=== PATIENT | male | born 1945 | race Caucasian/White ===

== ENCOUNTER 2020-11-16 18:38 | Inpatient (IN) | payer OTHER ==
[~2020-11-16] VITALS: Ht 172.7 cm; Wt 86.2 kg
[2020-11-16] MEDS ORDERED: OMEPRAZOLE20 MG PO (23:18)
[2020-11-16] MEDS ORDERED: DOXAZOSIN MESYLA8 MG PO (23:19)
[2020-11-16] MEDS ORDERED: MEDROL DOSEPAK 24 MG PO (23:19)
[2020-11-16] MEDS ORDERED: BAYER CHEWABLE81 MG PO (23:19)
[2020-11-16] MEDS ORDERED: PRAVASTATIN SOD80 MG PO (23:20)
[2020-11-16] MEDS ORDERED: NORVASC2.5 MG PO (23:21)
[2020-11-16] MEDS ORDERED: VITAMIN D325 MCG PO (23:21)
[2020-11-16] MEDS ORDERED: CERTAVITE-ANTI1 EACH PO (23:21)
[2020-11-16] MEDS ORDERED: DOXYCYCLINE HY100 M2 PO (23:21)
[2020-11-16] MEDS ORDERED: BROMPHENIR-PSE118 ML PO (23:22)
[2020-11-17 13:29] LABS: HEMOGLOBIN 13.6 gm/dl (14.0-17.5); RED BLOOD COUNT 4.58 M/UL (4.20-5.50); WHITE BLOOD COUNT 24.3 K/UL (4.5-11.0)
[2020-11-17 14:00] LABS: BUN/CREATININE RATIO 19 (0-10)
[2020-11-18 05:13] LABS: HEMOGLOBIN 12.8 gm/dl (14.0-17.5); RED BLOOD COUNT 4.33 M/UL (4.20-5.50); WHITE BLOOD COUNT 21.7 K/UL (4.5-11.0)
[2020-11-18 05:29] LABS: BUN/CREATININE RATIO 21 (0-10)
[2020-11-18] MEDS ORDERED: LEVOFLOXACIN750 MG PO (08:44)
== END 2020-11-18 18:32 | disposition home or self-care (01) | DRG 689 ==
LOC: MED SURG 4 22:40
PROVIDERS: Internal Medicine; ADMIT Internal Medicine
DX: N30.00 Acute cystitis without hematuria (principal); U07.1 COVID-19; J12.82 Pneumonia due to coronavirus disease 2019; N10 Acute pyelonephritis; N40.1 Benign prostatic hyperplasia with lower urinary tract symptoms; R33.8 Other retention of urine; I10 Essential (primary) hypertension; E78.5 Hyperlipidemia, unspecified; K21.9 Gastro-esophageal reflux disease without esophagitis; Z90.49 Acquired absence of other specified parts of digestive tract; Z82.49 Family history of ischemic heart disease and other diseases of the circulatory system; Z83.3 Family history of diabetes mellitus; Z82.3 Family history of stroke; Z84.89 Family history of other specified conditions; Z79.82 Long term (current) use of aspirin; Z79.899 Other long term (current) drug therapy
CPT/HCPCS: 36415; 80048; 80053; 81001; 85025; 85027; 87040; 87086; 93005; J0696; J3480